=== PATIENT | male | born 2000 | race Caucasian/White ===

== ENCOUNTER 2021-12-02 11:25 | Emergency (ER) | payer BC ==
[2021-12-02] MEDS ORDERED: cefTRIAXone 2 GM in Sodium Chloride 0.9% 100 ML IV ONE (12:29)
[2021-12-02] MEDS ORDERED: Sodium Chloride 0.9% 10 ML Syringe FLUSH PRN (12:29)
== END 2021-12-02 14:00 | disposition home or self-care (01) ==
LOC: JD.ED 11:25
DX: S60.9 Unspecified superficial injury of wrist, hand and fingers (principal); W23.1XXA Caught, crushed, jammed, or pinched between stationary objects, initial encounter
CPT/HCPCS: 36415; 73130; 80053; 85025; 87070; 87075; 87077; 87186; 87205; 96365; 99283; J0696